=== PATIENT | female | born 1965 | race African-American/Black ===

== ENCOUNTER 2019-01-01 01:20 | Emergency (ER) | payer BC ==
[~2019-01-01] VITALS: Ht 165.1 cm; Wt 74.8 kg
[~2019-01-01 01:20] MED LIST: ACYCLOVIR400 MG ORAL; FLOXIN OTIC10 DROP LEFT EYE; ULTRAM50 MG ORAL
[2019-01-01] MEDS ORDERED: Acetaminophen 500mg (ES) tab ORAL ONE (01:30)
[2019-01-01] MEDS ORDERED: Tetanus/Diptheria/Pertussis Vaccine 0.5ml Syr IM ONE (01:30)
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
[2019-01-01 01:36] VITALS: BP 138/79
[2019-01-01] MEDS ORDERED: ACETAMINOPHEN-1 EAC1 ORAL (02:00)
[2019-01-01] MEDS ORDERED: SILVADENE20 GM TP (02:00)
[2019-01-01] MEDS ORDERED: Tetanus-Diphtheria Toxoid 0.5ml IM ONE (02:00)
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
[2019-01-01 02:06] VITALS: BP 138/79
--- NOTE | 2019-01-01 02:06 | NUR ---
ED Nurse Note: PT DC PER ERMD ORDER, PT WAS GIVE DC AND PRESCRIPTION INCSTRUCTIONS. PT IS AOX4 ADN WAS ABLE TO VERBALIZE UNDERSTANDING. ID BAND REMOVED, PT IV SIT DISCONTINUED WITHOUT COMPLICATION PT IS ON ROOM AIR, ABLE TO AMBULATE WITH STEADY GAIT. PT HAS TAKEN ALL BELONGINGS WITH THEM.
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
== END 2019-01-01 02:06 | disposition home or self-care (01) ==
LOC: EMR 01:45
DX: T21.21XA Burn of second degree of chest wall, initial encounter (principal); X12.XXXA Contact with other hot fluids, initial encounter; Y92.009 Unspecified place in unspecified non-institutional (private) residence as the place of occurrence of the external cause; I10 Essential (primary) hypertension
CPT/HCPCS: 90471; 90714; 96372; 99283